=== PATIENT | female | born 2000 | race Caucasian/White ===

== ENCOUNTER 2018-02-21 00:34 | Emergency (ER) | payer OTHER ==
[2018-02-21] MEDS ORDERED: Ondansetron ODT TAB* 4 MG ONE (00:42)
[2018-02-21] MEDS ORDERED: Ondansetron ODT TAB* 4 MG PO ONE (01:10)
[2018-02-21 03:42] VITALS: BP 101/78
--- NOTE | 2018-02-21 06:10 | ED ---
Isabella Weir Emily, scribed for Liza Evans MD on 02/21/18 at 0111 . 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 - History Of Current Complaint Chief Complaint: EDSubstanceAbuse Stated Complaint: ETOH Time Seen by Provider: 02/21/18 00:47 Hx Obtained From: EMS Hx From Patient Unobtainable Due To: Other - ETOH INTOXICATION - Allergies/Home Medications Allergies/Adverse Reactions: Allergies Allergy/AdvReac Type Severity Reaction Status Date / Time No Known Allergies Allergy Verified 02/21/18 00:45 Home Medications: Home Medications NK [No Home Medications Reported] 02/21/18 [History Confirmed 02/21/18] PMH/Surg Hx/FS Hx/Imm Hx Previously Healthy: No - UNABLE TO OBTAIN PMHx DUE TO LEVEL 5 CAVEAT - ETOH INTOXICATION Infectious Disease History: No Infectious Disease History: Denies: Traveled Outside the [place] in Last 30 Days - Social History Occupation: Student Lives: Dormitory/Roommates Review of Systems - ROS Summary Review of Systems Summary: UNABLE TO OBTAIN ROS DUE TO LEVEL 5 CAVEAT - ETOH INTOXICATION All Other Systems Reviewed And Are Negative: No Physical Exam - Summary Physical Exam Summary: UNABLE TO OBTAIN FULL PE DUE TO LEVEL 5 CAVEAT - ETOH INTOXICATION VITAL SIGNS: Reviewed. GENERAL: ~Patient is a well-developed and nourished female who is lying comfortable in the stretcher. Patient is not in any acute respiratory distress. Pt seems intoxicated HEAD AND FACE: No signs of trauma. No ecchymosis, hematomas or skull depressions. No sinus tenderness. EYES: PERRLA, EOMI x 2, No injected conjunctiva, no nystagmus. EARS: Hearing grossly intact. Ear canals and tympanic membranes are within normal limits. MOUTH: Oropharynx within normal limits. NECK: Supple, trachea is midline, no adenopathy, no JVD, no carotid bruit, no c- spine tenderness, neck with full ROM. CHEST: Symmetric, no tenderness at palpation LUNGS: Clear to auscultation bilaterally. No wheezing or crackles. CVS: Regular rate and rhythm, S1 and S2 present, no murmurs or gallops appreciated. ABDOMEN: Soft, non-tender. No signs of distention. No rebound no guarding, and no masses palpated. Bowel sounds are normal. EXTREMITIES: FROM in all major joints, no edema, no cyanosis or clubbing. NEURO: pt is only responsive to deep touch. SKIN: Dry and warm Triage Information Reviewed: Yes Vital Signs On Initial Exam: Initial Vitals Temp Pulse Resp BP Pulse Ox 97.2 F 91 16 126/75 99 02/21/18 00:45 02/21/18 00:45 02/21/18 00:45 02/21/18 00:45 02/21/18 00:45 Vital Signs Reviewed: Yes Diagnostics - Vital Signs Vital Signs Temp Pulse Resp BP Pulse Ox 02/21/18 00:45 97.2 F 91 16 126/75 99 - Laboratory Lab Statement: Any lab studies that have been ordered have been reviewed, and results considered in the medical decision making process. Re-Evaluation - Re-Evaluation First Eval Re-Evaluation Time: 06:01 Change: Improved Comment: Pt is awake and alert. She is all dressed in her clothes and is requesting to leave. 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
== END 2018-02-21 06:15 | disposition home or self-care (01) ==
LOC: ED 00:34
DX: F10.129 Alcohol abuse with intoxication, unspecified (principal)
CPT/HCPCS: 99282; A9270-GY